=== PATIENT | female | born 1970 | race Caucasian/White ===

== ENCOUNTER 2024-05-21 12:15 | Emergency (ER) | payer SELFPAY ==
[~2024-05-21] VITALS: Ht 165.1 cm; Wt 82.0 kg
[2024-05-21 12:18] VITALS: O2SAT 100
[2024-05-21 12:55] LABS: BASOPHILS % 0.7 % (0.0-2.0); HEMATOCRIT. 39.2 % (36.0-48.0); HEMOGLOBIN. 12.8 g/dL (12.0-16.0); LYMPHOCYTES % 33.7 % (20.0-50.0); MEAN CORPUSCULAR HEMOGLOBIN 27.7 pg (28.0-32.0); MEAN CORPUSCULAR HGB CONC 32.7 g/dL (31.0-37.0); MEAN CORPUSCULAR VOLUME 84.5 fL (81.0-99.0); MEAN PLATELET VOLUME 8.1 fl (7.4-10.4); MONOCYTES % 6.8 % (2.0-8.0); NEUTROPHILS % 56.8 % (40.0-76.0); PLATELET 293 x1000/uL (130-400); RED BLOOD CELL COUNT 4.64 mill/uL (4.2-5.4); RED CELL DISTRIBUTION WIDTH 13.7 % (11.6-14.6); WHITE BLOOD COUNT 5.9 x1000/uL (4.5-11.0)
[2024-05-21 13:02] LABS: CHLORIDE 106 mEq/L (98-107); POTASSIUM 3.4 mEq/L (3.5-5.1); SODIUM 142 mEq/L (136-145)
[2024-05-21 13:03] LABS: CARBON DIOXIDE 27 mEq/L (21-32)
[2024-05-21 13:04] LABS: CALCIUM 9.4 mg/dL (8.7-10.4)
[2024-05-21 13:08] LABS: CREATININE 0.9 mg/dL (0.6-1.0); GLUCOSE 110 mg/dL (70-105); UREA NITROGEN BLOOD 11 mg/dL (9-23)
[2024-05-21 13:27] LABS: TROPONIN I HIGH SENSITIVITY 4 ng/L (3.0-34)
[2024-05-21 13:54] VITALS: BP 154/74; PULSE 92; RESP 18; TEMP 36.89184; O2SAT 100
== END 2024-05-21 13:56 | disposition home or self-care (01) ==
LOC: ER 12:15
DX: F41.9 Anxiety disorder, unspecified (principal); R42 Dizziness and giddiness; R11.0 Nausea; I10 Essential (primary) hypertension; I25.2 Old myocardial infarction
CPT/HCPCS: 36415; 71045; 80048; 84484; 85025; 93005; 99285